=== PATIENT | female | born 1985 | race Caucasian/White ===

== ENCOUNTER 2019-04-04 10:03 | Emergency (ER) | payer MEDICAID ==
[~2019-04-04] VITALS: Ht 172.7 cm; Wt 97.5 kg
--- NOTE | 2019-04-04 10:08 | NUR ---
PATIENT AMBULATED STEADY GAIT TO BED 6.
[2019-04-04 10:18] VITALS: BP_SYST 132; BP_DIAS 7; BP_DIAS 70
--- NOTE | 2019-04-04 10:25 | NUR ---
PT C/O NON-RADIATING RIGHT-SIDED LOWER BACK PAIN FOR 16 DAYS, 12/01. PT WENT TO THE [facility] ER AND HER OB THIS MONDAY, PRESCRIBED WITH KEFLEX FOR UTI. PT DENIES FEVER, CHILLS, OR URGENCY, FREQUENCY, AND BURNING SENSATION OF URINATION. PT ALSO STATES BEING 14 WEEKS . A0. JORGE: 10/04/19 PATIENT STATES PAIN OF 8/10 AT THIS TIME; VSS; PATIENT POSITIONED FOR COMFORT; HOB ELEVATED; BEDRAILS UP X1; BED DOWN. ER MD MADE AWARE OF PT STATUS.
[2019-04-04 10:52] LABS: BILIRUBIN,URINE NEGATIVE (NEGATIVE); BLOOD, URINE NEGATIVE (NEGATIVE); COLOR,URINE YELLOW (YELLOW); LEUKOCYTE ESTERASE ,URINE TRACE (NEGATIVE); NITRITE, URINE NEGATIVE (NEGATIVE); UGLUCOSE 3+ (NEGATIVE)
[2019-04-04 11:01] LABS: APPEARANCE,URINE HAZY (CLEAR)
[2019-04-04 11:06] LABS: RBC,URINE 0-5 /HPF (0-5)
[2019-04-04] MEDS ORDERED: NACL 0.9% 1,000 ML IV ONE (11:15)
[2019-04-04 11:25] VITALS: BP 128/90
--- NOTE | 2019-04-04 11:25 | NUR ---
Pt states she has to be taking care of daughter at this time and she will be back today for further treatment. No discharge paperwork given to patient providing by Dr. Felder's. Patient discharged with v/s stable. Patient verbalized understanding. Ambulatory with steady gait. All questions addressed prior to discharge.
== END 2019-04-04 11:25 | disposition home or self-care (01) ==
LOC: MED 10:03
DX: O23.41 Unspecified infection of urinary tract in pregnancy, first trimester (principal); Z3A.14 14 weeks gestation of pregnancy; Z79.899 Other long term (current) drug therapy
CPT/HCPCS: 81001; 81025; 87086; 99283

== ENCOUNTER 2019-04-04 14:57 | Inpatient (IN) | payer MEDICAID ==
[~2019-04-04] VITALS: Ht 172.7 cm; Wt 97.5 kg
[2019-04-04 15:05] VITALS: BP 152/78
--- NOTE | 2019-04-04 15:23 | NUR ---
PT C/O RIGHT MID/LOWER BACK PAIN SINCE 03/21/19 WITH 14 WEEKS PREGNACY. SEEN HERE THIS AM FOR UTI. PATIENT STATES PAIN OF 8/10 AT THIS TIME; VSS; PATIENT POSITIONED FOR COMFORT; HOB ELEVATED; BEDRAILS UP X1; BED DOWN. ER MD MADE AWARE OF PT STATUS.
[2019-04-04] MEDS ORDERED: NACL 0.9% 1,000 ML IV ONE (15:30)
[2019-04-04] MEDS ORDERED: cefTRIAXone 1,000 MG VIAL ONE (15:35)
[2019-04-04] MEDS ORDERED: DEXTROSE 5% 50 ML IV ONE (15:35)
[2019-04-04 16:00] VITALS: BP 133/83
--- NOTE | 2019-04-04 16:10 | NUR ---
Patient will be admitted to care of Pyelonephritis. Admited to Med-Surg. Will go to room 105B. Belongings list completed. Report to BRUCE Arrieta.
--- NOTE | 2019-04-04 16:22 | NUR ---
RECEIVED REPORT FROM ER NURSE FOR CONTINUATION OF CARE, PATIENT WAS RECEIVED ON THE UNIT IN MEDICALLY STABLE CONDITION. ADMISSION IN PROCESS. PATIENT REQUESTS TO KEEP SIDE RAILS DOWN, PATIENT IS AA0 X 4, PRESENTS PHYSICALLY ABLE TO AMBULATE WITHOUT ASSIST. ROCEPHIN RUNNING 1 GRAM 100 ML/HR. BED IS IN LOWEST POSITION, CALL LIGHT ON AND IN REACH. WILL CONTINUE TO MONITOR.
[2019-04-04] MEDS ORDERED: MORPHINE SULFATE 4 MG/ML SYR IVP PRN (17:45)
--- NOTE | 2019-04-04 19:25 | NUR ---
REPORT GIVEN TO BOAT HAND NURSE FOR CONTINUITY OF CARE. BED IN LOW POSITION, CALL LIGHT ON AND WITHIN REACH. WILL CONTINUE TO MONITOR.
--- NOTE | 2019-04-04 19:30 | NUR ---
RECEIVED BEDSIDE REPORT FROM AM SHIFT BRUCE MALCOLM AND PEEWEE, FOR PT'S CONTINUITY OF CARE. PT IS LYING DOWN IN BED, IS ON ROOM AIR, HAS LEFT AC 20G WITH NS AT 120 ML/HR. PT STATES HAS INTERMITTENT BACK PAIN OF 7/10, BUT REFUSED TO TAKE PAIN MEDICATION, WILL TRY TO DO SOME NON-PHARMACOLOGIC TECHNIQUES FIRST. EXPLAINED TO PT THE WOODWORKING MACHINE OPERATOR ROUTINE AND THE HOSPITAL ENVIRONMENT, PT VERBALIZED UNDERSTANDING. BED IS ON LOW POSITION, SIDE RAILS ARE UP, AND CALL LIGHT IS WITHIN REACH. WILL MONITOR PT THROUGHOUT SHIFT.
--- NOTE | 2019-04-04 21:00 | NUR ---
PER PT, URINE SAMPLE NEEDED. NO URINE CULTURE ORDER IN CHART. EXPLAINED TO PT THAT MD WILL BE PAGED IN THE AM AND ASK FOR FURTHER DETAILS. PT STATES THAT SHE NOTICED SHE WAS MILD SPOTTING WHEN SHE GOT HERE IN THE UNIT, AND THAT CONCERNS HER. WILL RELAY THE MESSAGE TO MD. PT'S NEEDS MET AT THIS TIME. PT STATES OF INTERMITTENT TOLERABLE PAIN. WILL CONTINUE TO MONITOR PT.
[2019-04-04] MEDS: NACL 0.9% 1,000 ML IV SCH (22:45)
--- NOTE | 2019-04-04 23:30 | NUR ---
VS CHECKED AND CHARTED. PT DENIES ANY PAIN AT THIS TIME. REQUESTED FOR AND PROVIDED A SANDWICH AND JUICE. WILL CONTINUE TO MONITOR PT.
[2019-04-05] VITALS: BP 119/75
--- NOTE | 2019-04-05 02:00 | NUR ---
MADE ROUNDS. PT LYING DOWN ASLEEP WITH NO SIGNS OF DISTRESS OR DISCOMFORT. WILL CONTINUE TO MONITOR PT.
--- NOTE | 2019-04-05 03:20 | NUR ---
PT STATED MILD SPOTTING NOTED DURING URINATION, WITH NO DISCOMFORT. WILL CONTINUE TO MONITOR SPOTTING, AND WILL INFORM MD.
[2019-04-05] MEDS: NACL 0.9% 1,000 ML IV SCH ×4 (05:05→21:03)
--- NOTE | 2019-04-05 07:22 | NUR ---
RECEIVED BEDSIDE REPORT FROM APPLICATION MANAGER NURSE. PT IS AWAKE AND ALERT, NO S/S OF ACUTE DISTRESS OR SOB. PT IS ON ROOM AIR, SKIN IS INTACT. IV SITE L AC 20 G, INFUSING NS 100 ML/HR. PT IS AMBULATORY. CALL LIGHT IS WITHIN REACH. WILL CONTINUE TO MONITOR.
--- NOTE | 2019-04-05 07:30 | NUR ---
ENDORSED PT TO AM SHIFT RN FOR PT'S CONTINUITY OF CARE. SPOKE WITH DR. JAVIER MD ORDERED US KIDNEY AND URINE C&S. INFORMED MD RE: SPOTTING, SAID IT IS NORMAL. RELAYED INFO TO PT. PT VERBALIZED UNDERSTANDING. PT DENIES ANY PAIN AT THIS TIME.
[2019-04-05 08:00] VITALS: BP 134/78
--- NOTE | 2019-04-05 08:41 | NUR ---
SPOKE WITH DR. HERRERA OVER THE PHONE REGARDING BLOOD WORKS FOR TODAY AND RELAYED LATEST V/S. PER MD, NO NEED FOR BLOOD WORKS. ABHINAV ASSIGNED NOTIFIED.
--- NOTE | 2019-04-05 10:56 | NUR ---
URINE SAMPLE OBTAINED AND SENT TO LAB FOR CULTURE.
--- NOTE | 2019-04-05 12:20 | NUR ---
PT SEEN BY DR. HERRERA
--- NOTE | 2019-04-05 12:30 | NUR ---
PT IS C/O FEELING NAUSEOUS, AND DOES NOT WANT TO EAT HER LUNCH AT THIS TIME. PT NOTIFIED THAT SHE HAS ZOFRAN ON BOARD FOR NAUSEA, BUT SHE DECLINES IT AT THIS TIME. PT AGREED TO HAVING SOME ICE CHIPS INSTEAD. WILL CONTINUE TO MONITOR.
[2019-04-05] MEDS ORDERED: ONDANSETRON 4 MG/2 ML VIAL IVP PRN (12:35)
--- NOTE | 2019-04-05 14:18 | NUR ---
PT IS ASLEEP AT THIS TIME, NO S/S OF DISTRESS.
--- NOTE | 2019-04-05 15:22 | NUR ---
PT EATING A LATE LUNCH AT THIS TIME ([employer] SANDWICH, JELLO), SINCE SHE DID NOT EAT HER LUNCH TRAY
--- NOTE | 2019-04-05 15:55 | NUR ---
PT'S IV INFILTRATED; WILL ATTEMPT TO PLACE A NEW IV
[2019-04-05 16:00] VITALS: BP 132/76
[2019-04-05] MEDS ORDERED: cefTRIAXone 2,000 MG in DEXTROSE 5% 100 ML IV SCH (16:00)
--- NOTE | 2019-04-05 16:34 | NUR ---
NEW IV INSERTED; R ARIE 22 G.
--- NOTE | 2019-04-05 16:54 | NUR ---
PT VISITING WITH A FRIEND, NO S/S OF DISTRESS.
--- NOTE | 2019-04-05 18:43 | NUR ---
PT VISITING WITH RELATIVE AT BEDSIDE, NO C/O PAIN OR DISTRESS, ATE ABOUT 90% OF DINNER.
--- NOTE | 2019-04-05 19:13 | NUR ---
ENDORSED PT TO CORPORATE ASSOCIATE ATTORNEY NURSE IN STABLE CONDITION.
--- NOTE | 2019-04-05 19:20 | NUR ---
RECEIVED BEDSIDE REPORT FROM AM SHIFT ALMA ROSA, FOR PT'S CONTINUITY OF CARE. PT IS AAOX4, WATCHING TV IN BED, FAMILY MEMBERS AT BEDSIDE, PT IS ON ROOM AIR, HAS RIGHT FA 22G, DENIES ANY PAIN AT THIS TIME BUT SLIGHT DISCOMFORT ON RIGHT LOWER BACK. MADE PT AWARE WITH PAIN MEDICATION AND NON PHARMACOLOGIC USE FOR PAIN OR DISCOMFORT MANAGEMENT, SUCH WARMING PAD. PT VERBALIZED UNDERSTANDING. SAFETY MEASURES IN PLACE, AND CALL LIGHT IS WITHIN REACH. PT'S NEEDS MET. WILL MONITOR PT THROUGHOUT SHIFT.
--- NOTE | 2019-04-05 21:05 | NUR ---
ADMINISTERED NEW IVF ORDERED. PT STATES THAT THERE IS NO DISCOMFORT ON THE IV SITE AT THIS TIME. PT'S NEEDS MET. WILL CONTINUE TO MONITOR PT.
--- NOTE | 2019-04-05 23:00 | NUR ---
MADE ROUNDS. PT LYING DOWN ASLEEP WITH NO SIGNS OF DISTRESS. WILL CONTINUE TO MONITOR PT.
[2019-04-06] VITALS: BP 108/63
--- NOTE | 2019-04-06 00:10 | NUR ---
VS CHECKED AND CHARTED. PT WAS ASLEEP, WOKE UP AND DENIES ANY PAIN. PT'S NEEDS MET. WILL CONTINUE TO MONITOR PT.
--- NOTE | 2019-04-06 00:15 | NUR ---
VS CHECKED AND CHARTED. PT WAS ASLEEP, WOKE UP AND DENIES ANY PAIN OR DISCOMFORT. REASSESSED BRADLEY DRAIN, DRAINING WITH SMALL AMOUNT OF SEROUS DRAINAGE. DRESSING DRY AND INTACT. WILL CONTINUE TO MONITOR PT. Addendum: 04/06/19 at 0152 by Kimberly Sameul RN WRONG ENTRY
--- NOTE | 2019-04-06 02:21 | NUR ---
MADE ROUNDS. PT ASLEEP WITH NO SIGNS OF DISTRESS. WILL CONTINUE TO MONITOR PT. PT'S ROOM DOOR CLOSED DT PT IN NEXT ROOM SCREAMING AND YELLING.
[2019-04-06] MEDS: NACL 0.9% 1,000 ML IV SCH ×2 (04:20→11:43)
--- NOTE | 2019-04-06 04:23 | NUR ---
ADMINISTERED NEW BAG OF IVF ORDERED. FOUND PT SITTING UP LEANING FORWARD ON THE SIDE TABLE. PT REPORTS DISCOMFORT AND MILD BACK PAIN. OFFERED PT WARM PAD, AND/OR PAIN MEDICATION. PT REFUSED BOTH. PT STATES SHE WILL JUST USE REPOSITIONING TO EASE PAIN. PT'S NEEDS MET AT THIS TIME. WILL CONTINUE TO MONITOR PT.
--- NOTE | 2019-04-06 06:20 | NUR ---
PT IS LYING DOWN ASLEEP WITH NO SIGNS OF DISTRESS. WILL ENDORSE PT TO AM SHIFT RN FOR PT'S CONTINUITY OF CARE.
--- NOTE | 2019-04-06 07:10 | NUR ---
RECEIVED BEDSIDE REPORT FROM PEELED POTATO INSPECTOR NURSE. PATIENT IS AWAKE, ALERT AND ORIENTEDX4. NO SIGNS OF DISTRESS ON RA. SKIN IS INTACT. IV ON R FA 22G INFUSING NS AT 150. CLEAN, DRY AND INTACT. AMBULATORY. CONTINENT. ABLE TO MAKE NEEDS KNOWN. BED IN LOW POSITION. CALL LIGHT WITHIN REACH. WILL CONTINUE TO MONITOR THE PATIENT.
[2019-04-06 08:00] VITALS: BP 118/69
--- NOTE | 2019-04-06 08:27 | NUR ---
PATIENT IN NO DISTRESS. SHE SAID SHE HAS PAIN BUT IT COMES AND GOES AND ITS TOLERABLE. SHE SAID SHE DOES NOT WANT PAIN MEDS. ABLE TO MAKE NEEDS KNOWN. CALL LIGHT WITHIN REACH. WILL CONTINUE TO MONITOR THE PATIENT
--- NOTE | 2019-04-06 09:12 | NUR ---
PATIENT REACHED DOWN TO GET THE BALING MACHINE OPERATOR. WALKING IN NO DISTRESS. WILL CONTINUE TO MONITOR THE PATIENT
--- NOTE | 2019-04-06 10:47 | NUR ---
PATIENT IN NO DISTRESS. LAYING IN BED. WILL CONTINUE TO MONITOR THE PATIENT.
--- NOTE | 2019-04-06 11:43 | NUR ---
PATIENT IN NO DISTRESS. ADMINISTERED IVF. WILL CONTINUE TO MONITOR THE PATIENT
--- NOTE | 2019-04-06 12:11 | NUR ---
PATIENT RECEIVED HER FOOD. NO SIGNS OF DISTRESS. WILL CONTINUE TO MONITOR THE PATIENT
[2019-04-06] MEDS ORDERED: CEPH250C16 PO (14:25)
--- NOTE | 2019-04-06 14:43 | NUR ---
EDUCATED PATIENT ON DISEASE PROCESS, ABN S/SX, WHEN TO GO TO THE ER, EDUCATED ON FOLLOW UP W DR HERRERA IN ONE WEEK, PATIENT SAID SHE HAS AN APPOINTMENT ALREADY, EDUCATED ON MEDS, GAVE PRESCRIPTION, PATIENT REFUSED PNA AND FLU VACCINES. REMOVED IV, TIP INTACT. PATIENT IS CHANGING. WILL REMOVE ID BAND WHEN PATIENT IS READY TO GO HOME.
--- NOTE | 2019-04-06 14:49 | NUR ---
ID BAND REMOVED. PATIENT LEFT IN STABLE CONDITION, ESCORTED BY GROUND SUPPORT AGENT. PATIENT IS NO DIZZY AND HAS HAD NO PAIN MEDS, SHE IS DRIVING HOME.
== END 2019-04-06 14:50 | disposition home or self-care (01) | DRG 566 ==
LOC: MED 14:57 → MTU 15:32
PROVIDERS: ADMIT Obstetrics & Gynecology; ATTEND Obstetrics & Gynecology
DX: O23.01 Infections of kidney in pregnancy, first trimester (principal); O24.911 Unspecified diabetes mellitus in pregnancy, first trimester; Z3A.14 14 weeks gestation of pregnancy
CPT/HCPCS: 76770; 87081; 87086; 96365; 99285; J0696; J7030; J7060; Q0092